=== PATIENT | female | born 2000 | race Asian ===

== ENCOUNTER 2025-01-01 21:06 | Emergency (ER) | payer SELFPAY ==
[~2025-01-01] VITALS: Ht 172.7 cm; Wt 58.0 kg
[2025-01-01 21:34] VITALS: O2SAT 98
[2025-01-01] MEDS: SODIUM CHLORIDE 0.9% 1,000 ML IV ONE (23:00)
[2025-01-01] MEDS: ONDANSETRON HCL 4MG/2ML INJ IV ONE (23:00)
[2025-01-02 00:36] LABS: BASOPHILS % 0.7 % (0.0-2.0); EOSINOPHILS % 0.0 % (0.0-5.0); HEMATOCRIT. 42.1 % (36.0-48.0); HEMOGLOBIN. 13.6 g/dL (12.0-16.0); LYMPHOCYTES % 18.3 % (20.0-50.0); MEAN PLATELET VOLUME 8.8 fl (7.4-10.4); MONOCYTES % 3.8 % (2.0-8.0); NEUTROPHILS % 77.2 % (40.0-76.0); PLATELET 223 x1000/uL (130-400); RED BLOOD CELL COUNT 4.37 mill/uL (4.2-5.4); RED CELL DISTRIBUTION WIDTH 13.0 % (11.6-14.6)
[2025-01-02 00:43] VITALS: BP 97/53; PULSE 89; RESP 18; TEMP 36.7; O2SAT 99
[2025-01-02 00:44] LABS: CREATININE 0.7 mg/dL (0.6-1.0)
[2025-01-02 00:45] LABS: ETHANOL BLOOD 238 mg/dL (<10); UREA NITROGEN BLOOD 9 mg/dL (9-23)
== END 2025-01-02 01:00 | disposition home or self-care (01) ==
LOC: EDBD 21:30 → ER 21:30
DX: T51.0X1A Toxic effect of ethanol, accidental (unintentional), initial encounter (principal); R41.82 Altered mental status, unspecified; R11.10 Vomiting, unspecified; Y92.89 Other specified places as the place of occurrence of the external cause; Y90.8 Blood alcohol level of 240 mg/100 ml or more
CPT/HCPCS: 36415; 96361; 96374; 99284; 80048; 80320; 85025; J2405; J7030; Z7610; G0480